=== PATIENT | female | born 1970 | race Caucasian/White ===

== ENCOUNTER 2017-06-04 11:07 | Emergency (ER) | payer OTHER ==
[~2017-06-04] VITALS: Ht 157.5 cm; Wt 63.5 kg
[~2017-06-04 11:07] MED LIST: Aspir 8181 MG PO; BCP PO; CEPH500 PO; ESTA1 PO; HYDROCODON-ACET15 ML; MULVITMIND PO; NAPR500 PO; OCUVITE EYE +1 EACH PO; OXYC1TAB11 PO; Omeprazole20 M1; TIZA4; VITAMIN D PO; Zofran Odt4 MG SL
[2017-06-04 11:55] LABS: BASOPHILS ABSOLUTE AUTO 0.05 K/mm3 (0.00-0.23); BASOPHILS PERCENT AUTO 1 % (0-2); EOSINOPHILS PERCENT AUTO 1 % (0-6); Hematocrit 40.4 % (33.0-51.0); Hemoglobin 13.8 g/dL (11.5-16.0); IMMATURE GRAN ABSOLUTE AUTO 0.02 K/mm3 (0.00-0.10); IMMATURE GRAN PERCENT AUTO 0 % (0-1); LYMPHOCYTES ABSOLUTE AUTO 2.12 K/mm3 (0.84-5.20); LYMPHOCYTES PERCENT AUTO 25 % (21-46); MONOCYTES ABSOLUTE AUTO 0.62 K/mm3 (0.16-1.47); MONOCYTES PERCENT AUTO 7 % (4-13); Mean Corpuscular HGB 35.7 pg (26.0-34.0); Mean Corpuscular HGB Conc 34.2 g/dL (31.5-36.5); Mean Corpuscular Volume 104 fL (80-100); Mean Platelet Volume 10.7 fL (9.1-12.4); NEUTROPHILS ABSOLUTE AUTO 5.73 K/mm3 (1.96-9.15); NEUTROPHILS PERCENT AUTO 66 % (41-73); Platelet Count 225 K/mm3 (150-400); RDW Coefficient Variation 13.9 % (11.7-14.2); RDW Standard Deviation 53.6 fL (35.1-46.3); Red Blood Cell Count 3.87 M/mm3 (3.80-5.20); White Blood Cell Count 8.64 K/mm3 (4.00-11.30)
[2017-06-04 12:11] LABS: Alanine Aminotransfer (ALT/SGP 48 U/L (12-78); Albumin, Blood 3.8 g/dL (3.4-5.0); Albumin/Globulin Ratio 1.2 (0.8-1.8); Alk Phos 92 U/L (50-136); Anion Gap 7 mmol/L (6-16); Aspartate Aminotrans (AST/SGOT 47 U/L (12-37); Bilirubin, Total 0.5 mg/dL (0.1-1.0); Blood Urea Nitrogen 16 mg/dL (8-24); Bun/Creatinine Ratio 22.8 (12.0-20.0); CO2, Blood 26 mmol/L (21-32); Calcium, Blood 8.9 mg/dL (8.5-10.1); Chloride, Blood 110 mmol/L (98-108); Globulin, Blood 3.2 g/dL (2.2-4.0); Glomerular Filtration Rate >60 (60-); Glucose, Blood 89 mg/dL (70-99); Potassium, Blood 3.6 mmol/L (3.5-5.5); Sodium, Blood 143 mmol/L (136-145); Troponin I <0.015 ng/mL (0.000-0.040)
== END 2017-06-04 13:33 | disposition home or self-care (01) ==
LOC: ER 11:07
PROVIDERS: Emergency Medicine
DX: I16.0 Hypertensive urgency (principal); Z88.8 Allergy status to other drugs, medicaments and biological substances; Z79.899 Other long term (current) drug therapy; Z79.82 Long term (current) use of aspirin; K21.9 Gastro-esophageal reflux disease without esophagitis; F17.210 Nicotine dependence, cigarettes, uncomplicated
CPT/HCPCS: 36415; 71045; 80053; 83880; 84484; 85025; 93005; 93010; 96374; 99283; J0360

== ENCOUNTER → 2017-07-07 | Outpatient (CLI) | payer OTHER ==
[2017-07-10 13:45] LABS: METANEPHRINE, UR 113 ug/L (Undefined); NORMETANEPHRINE, UR 376 ug/L (Undefined)
== END | disposition home or self-care (01) ==
LOC: LAB 09:45 → LAB FUT 07-01 12:10
PROVIDERS: Internal Medicine Cardiovascular Disease
DX: I10 Essential (primary) hypertension (principal)
CPT/HCPCS: 81050; 83835

== ENCOUNTER 2018-06-20 19:42 | Emergency (ER) | payer OTHER ==
[~2018-06-20] VITALS: Ht 157.5 cm; Wt 63.5 kg
[2018-06-20] MEDS ORDERED: LEVSOD25 PO (19:53)
[2018-06-20 20:08] LABS: BASOPHILS ABSOLUTE AUTO 0.02 K/mm3 (0.00-0.23); BASOPHILS PERCENT AUTO 0 % (0-2); EOSINOPHILS PERCENT AUTO 0 % (0-6); Hematocrit 45.7 % (33.0-51.0); Hemoglobin 14.6 g/dL (11.5-16.0); IMMATURE GRAN ABSOLUTE AUTO 0.08 K/mm3 (0.00-0.10); IMMATURE GRAN PERCENT AUTO 1 % (0-1); LYMPHOCYTES ABSOLUTE AUTO 0.72 K/mm3 (0.84-5.20); LYMPHOCYTES PERCENT AUTO 5 % (21-46); MONOCYTES ABSOLUTE AUTO 0.84 K/mm3 (0.16-1.47); MONOCYTES PERCENT AUTO 5 % (4-13); Mean Corpuscular HGB Conc 31.9 g/dL (31.5-36.5); Mean Corpuscular Volume 110 fL (80-100); Mean Platelet Volume 10.4 fL (9.1-12.4); NEUTROPHILS ABSOLUTE AUTO 14.47 K/mm3 (1.96-9.15); NEUTROPHILS PERCENT AUTO 90 % (41-73); Platelet Count 245 K/mm3 (150-400); RDW Standard Deviation 57.6 fL (35.1-46.3); Red Blood Cell Count 4.17 M/mm3 (3.80-5.20); White Blood Cell Count 16.13 K/mm3 (4.00-11.30)
[2018-06-20 20:19] LABS: Alanine Aminotransfer (ALT/SGP 163 U/L (12-78); Albumin, Blood 4.4 g/dL (3.4-5.0); Albumin/Globulin Ratio 1.1 (0.8-1.8); Alk Phos 93 U/L (50-136); Anion Gap 19 mmol/L (6-16); Aspartate Aminotrans (AST/SGOT 148 U/L (12-37); Bilirubin, Total 0.8 mg/dL (0.1-1.0); Blood Urea Nitrogen 19 mg/dL (8-24); Bun/Creatinine Ratio 20.3 (12.0-20.0); CO2, Blood 10 mmol/L (21-32); Calcium, Blood 8.3 mg/dL (8.5-10.1); Chloride, Blood 109 mmol/L (98-108); Creatinine, Blood 0.94 mg/dL (0.40-1.00); Glomerular Filtration Rate >60 (60-); Glucose, Blood 114 mg/dL (70-99); Potassium, Blood 4.8 mmol/L (3.5-5.5); Sodium, Blood 138 mmol/L (136-145); Total Protein, Blood 8.4 g/dL (6.4-8.2)
[2018-06-20 22:46] LABS: Source, Urine Clean Catch
[2018-06-20 22:48] LABS: Bilirubin, Urine Neg (Neg); Blood, Urine 2+ (Neg); Glucose Qualitative, Urine Neg (Neg); Ketones, Urine 4+ (Neg); Leukocyte Esterase, Urine Neg (Neg); Nitrite, Urine Neg (Neg); Protein, Urine 2+ (Neg); Specific Gravity, Urine 1.015 (1.003-1.022); Urobilinogen, Urine NORM (Normal)
[2018-06-20 22:51] LABS: Appearance, Urine Clear (Clear); Color, Urine Yellow (P-Yellow)
[2018-06-20 22:54] LABS: Bacteria Mod /hpf; Red Blood Cells, Urine 0-2 /hpf (0-2); Squamous Epithelial Cells Few /hpf (Few); White Blood Cells, Urine 0-2 /hpf (0-5)
[2018-06-21] MEDS ORDERED: METO10 PO (00:54)
== END 2018-06-21 01:05 | disposition home or self-care (01) ==
LOC: ER 19:42
PROVIDERS: Physician Assistant
DX: R11.2 Nausea with vomiting, unspecified (principal); R10.13 Epigastric pain; Z88.8 Allergy status to other drugs, medicaments and biological substances; Z79.899 Other long term (current) drug therapy; K21.9 Gastro-esophageal reflux disease without esophagitis; E03.9 Hypothyroidism, unspecified; Z87.891 Personal history of nicotine dependence
CPT/HCPCS: 74177; 76705; 80053; 81001; 83690; 85025; 87077; 87086; 87186; 93005; 93010; 96365-59; 96375; 96376; 99284-25; C9113; J0696; J1170; J1200; J1885; J2405; J2765; J7120; Q9967

== ENCOUNTER 2019-02-06 06:44 | Observation (INO) | payer OTHER ==
[~2019-02-06] VITALS: Ht 157.5 cm; Wt 58.6 kg
[~2019-02-06 06:44] MED LIST changes: +LEVSOD25 PO; +METO10 PO; +OMEP20ER PO; -Omeprazole20 M1
[2019-02-06 07:30] LABS: BASOPHILS ABSOLUTE AUTO 0.03 K/mm3 (0.00-0.23); BASOPHILS PERCENT AUTO 0 % (0-2); EOSINOPHILS ABSOLUTE AUTO 0.03 K/mm3 (0.00-0.68); EOSINOPHILS PERCENT AUTO 0 % (0-6); Hematocrit 45.5 % (33.0-51.0); Hemoglobin 14.6 g/dL (11.5-16.0); IMMATURE GRAN ABSOLUTE AUTO 0.08 K/mm3 (0.00-0.10); IMMATURE GRAN PERCENT AUTO 1 % (0-1); LYMPHOCYTES ABSOLUTE AUTO 0.54 K/mm3 (0.84-5.20); LYMPHOCYTES PERCENT AUTO 7 % (21-46); MONOCYTES ABSOLUTE AUTO 0.37 K/mm3 (0.16-1.47); MONOCYTES PERCENT AUTO 5 % (4-13); Mean Corpuscular HGB 35.4 pg (26.0-34.0); Mean Corpuscular HGB Conc 32.1 g/dL (31.5-36.5); Mean Corpuscular Volume 110 fL (80-100); Mean Platelet Volume 11.6 fL (9.1-12.4); NEUTROPHILS ABSOLUTE AUTO 6.72 K/mm3 (1.96-9.15); NEUTROPHILS PERCENT AUTO 87 % (41-73); Platelet Count 114 K/mm3 (150-400); RDW Coefficient Variation 13.6 % (11.7-14.2); RDW Standard Deviation 55.8 fL (35.1-46.3); Red Blood Cell Count 4.12 M/mm3 (3.80-5.20); White Blood Cell Count 7.77 K/mm3 (4.00-11.30)
[2019-02-06 07:33] LABS: Alanine Aminotransfer (ALT/SGP 284 U/L (12-78); Albumin/Globulin Ratio 1.2 (0.8-1.8); Alk Phos 85 U/L (50-136); Anion Gap 23 mmol/L (6-16); Aspartate Aminotrans (AST/SGOT 279 U/L (12-37); Bilirubin, Total 1.5 mg/dL (0.1-1.0); Blood Urea Nitrogen 9 mg/dL (8-24); Bun/Creatinine Ratio 13.1 (12.0-20.0); CO2, Blood 10 mmol/L (21-32); Calcium, Blood 8.4 mg/dL (8.5-10.1); Chloride, Blood 108 mmol/L (98-108); Creatinine, Blood 0.69 mg/dL (0.40-1.00); Globulin, Blood 3.3 g/dL (2.2-4.0); Glomerular Filtration Rate >60 (60-); Glucose, Blood 50 mg/dL (70-99); Sodium, Blood 141 mmol/L (136-145); Total Protein, Blood 7.3 g/dL (6.4-8.2)
[2019-02-06 07:38] LABS: Influenza A Negative (NEGATIVE); Influenza B Negative (NEGATIVE)
[2019-02-06 10:12] LABS: Source, Urine Voided
[2019-02-06 10:16] LABS: Bilirubin, Urine Neg (Neg); Blood, Urine 1+ (Neg); Glucose Qualitative, Urine Neg (Neg); Ketones, Urine 4+ (Neg); Leukocyte Esterase, Urine Neg (Neg); Nitrite, Urine Neg (Neg); Protein, Urine 2+ (Neg); Urobilinogen, Urine NORM (Normal)
[2019-02-06 10:20] LABS: pH Blood Venous 7.19 (7.34-7.37)
[2019-02-06 10:21] LABS: Appearance, Urine Clear (Clear); Color, Urine Yellow (P-Yellow)
[2019-02-06 10:21] LABS: Base Excess Venous -20.8 mmol/L; PCO2 Venous 19.5 mmHg (38-42)
[2019-02-06 10:23] LABS: Red Blood Cells, Urine 0-2 /hpf (0-2); White Blood Cells, Urine 0-2 /hpf (0-5)
[2019-02-06 10:24] LABS: Bacteria Mod /hpf; Squamous Epithelial Cells Few /hpf (Few)
[2019-02-06 10:28] LABS: U Amphetamine Screen Not Detected; U Barbituate Screen Not Detected; U Benzodiazapine Screen Not Detected; U Buprenorphine Screen Not Detected; U Cannabinoids Screen Not Detected; U Cocaine Screen Not Detected; U Methadone Screen Not Detected; U Methamphetamine Screen Not Detected; U Opiates Screen Not Detected; U Oxycodone Screen Not Detected; U Phencyclidine Screen Not Detected; U Propoxyphene Screen Not Detected
[2019-02-06 10:45] LABS: Chloride (POC) 111 mmol/L (98-108); Creatinine (POC) 0.6 mg/dL (0.6-1.0); Glucose (ISTAT POC) 65 mg/dL (70-99); Hemoglobin (POC) 14.3 g/dL (12.0-16.0); Potassium (POC) 4.5 mmol/L (3.5-5.5); Sodium (POC) 138 mmol/L (135-148); Total CO2 (POC) 11 mmol/L (21-32)
[2019-02-06 11:09] LABS: Bicarbonate Venous 12.1 mmol/L (24.0-30.0); PCO2 Venous 20.5 mmHg (38-42); PO2 Venous 196 mmHg (38-42); pH Blood Venous 7.23 (7.34-7.37)
[2019-02-06 13:08] LABS: Base Excess Venous -17.3 mmol/L; Bicarbonate Venous 12.8 mmol/L (24.0-30.0); PCO2 Venous 25.6 mmHg (38-42); PO2 Venous 74.9 mmHg (38-42); pH Blood Venous 7.22 (7.34-7.37)
[2019-02-06 16:14] LABS: Anion Gap 15 mmol/L (6-16); Blood Urea Nitrogen 9 mg/dL (8-24); Bun/Creatinine Ratio 13.4 (12.0-20.0); CO2, Blood 14 mmol/L (21-32); Calcium, Blood 7.9 mg/dL (8.5-10.1); Chloride, Blood 109 mmol/L (98-108); Creatinine, Blood 0.67 mg/dL (0.40-1.00); Glomerular Filtration Rate >60 (60-); Glucose, Blood 93 mg/dL (70-99); Potassium, Blood 4.5 mmol/L (3.5-5.5); Sodium, Blood 138 mmol/L (136-145)
[2019-02-06] MEDS ORDERED: LOSA50 PO (16:26)
[2019-02-06] MEDS ORDERED: BUPR150ER PO (16:26)
[2019-02-06 16:29] LABS: Percent Saturation 94.6 % (15.0-50.0)
--- NOTE | 2019-02-06 17:35 | NUR ---
SHIFT SUMMARY 1620 RECEIVED PT TO RM 364 VIA W/C FROM ER. PT ADMITTED FOR N/V, BROUGHT TO ER VIA EMS FOR C/O SEBASTIAN, CHILLS, AND CP SINCE YESTERDAY. LABS SHOWING ELEVATED LIVER ENZYMES, PER ER REPORT, LIVER FAILURE. RECEIVED REPORT FROM HANNA GANNON, PER , PT QUIT DRINKING 2 MONTHS AGO. PT POSSIBLY CLOSET DRINKER, IN DENIAL. TREMORS TO BUE'S. PT VERY UNSTEADY AND SHAKEY TRYING TO AMBULATE FROM W/C TO BED. PT ALSO TAKES A LONG TIME TO ANS QUESTIONS, HAVING DIFFICULTY REMEMBERING AND UNSURE HOW TO ANS OR WHAT TO SAY. LAC FS IV, INFUSING INF'S PER EMAR. NORMALLY INDEPENDENT AT HOME. MEDS GIVEN PER EMAR. PT REQUESTED JELLO AND BROTH; GIVEN. DENIED FURHTER NEEDS. CALL LT IN REACH.
[2019-02-06 17:36] LABS: Thyroid Stimulating Hormone 3.66 uIU/mL (0.360-4.800)
[2019-02-07 05:43] LABS: Alanine Aminotransfer (ALT/SGP 167 U/L (12-78); Albumin, Blood 3.1 g/dL (3.4-5.0); Albumin/Globulin Ratio 1.3 (0.8-1.8); Alk Phos 60 U/L (50-136); Anion Gap 15 mmol/L (6-16); Aspartate Aminotrans (AST/SGOT 117 U/L (12-37); Bilirubin, Total 1.3 mg/dL (0.1-1.0); Blood Urea Nitrogen 10 mg/dL (8-24); Bun/Creatinine Ratio 18.5 (12.0-20.0); CO2, Blood 15 mmol/L (21-32); Chloride, Blood 108 mmol/L (98-108); Creatinine, Blood 0.54 mg/dL (0.40-1.00); Globulin, Blood 2.3 g/dL (2.2-4.0); Glomerular Filtration Rate >60 (60-); Glucose, Blood 60 mg/dL (70-99); Potassium, Blood 3.7 mmol/L (3.5-5.5); Sodium, Blood 138 mmol/L (136-145); Total Protein, Blood 5.4 g/dL (6.4-8.2)
--- NOTE | 2019-02-07 07:49 | NUR ---
02/07/19 0600 CIWA DOWN THESE PAST TWO EVALS. PT TAKING ORAL FLUIDS THIS AM. NO C/O S/S OR PAIN. STAYED WITH HER ALL NIGHT. VITALS STABLE. DOING BETTER THIS AM.
[2019-02-07 09:06] LABS: HBSAG SCREEN Negative (Negative); HEP A AB, IGM Negative (Negative); HEP B CORE AB, IGM Negative (Negative); HEP C VIRUS AB <0.1 (0.0-0.9)
[2019-02-07] MEDS ORDERED: FOLI1 PO (10:28)
[2019-02-07] MEDS ORDERED: LORA.5 PO (10:28)
--- NOTE | 2019-02-07 13:48 | NUR ---
PT AWAKE DURING SHIFT REPORT, DENIED NEEDS. PT'S IN RM ASSISTING PT. PT VERY ANXIOUS AND RESTLESS, OUT OF BED FREQUENTLY. PT UNSTEADY AND SHAKEY WITH TREMORS TO UPPER EXTREMITIES. PT'S IN RM TRYING TO KEEP PT SAFE. PT SETTING BED ALARM OFF WANTING TO GO SMOKE AND BECOMING FRUSTRATED AT TRYING TO STOP HER. PT REMOVED TELE AND CONTINOUS BIOX. PT ASSISTED TO SHOWER, PER REQUEST. DR KERN IN TO SEE PT; D/C ORDERS PLACED. PT REMAINED VERY RESTLESS, EVEN UNTIL D/C. SOMEWHAT UNSTEADY ALL THE TIME. DISCUSSED D/C ORDERS WITH PT; VERBALIZED UNDERSTANDING. ASSISTED OUT TO CAR VIA W/C.
[2019-02-08 11:09] LABS: Antinuclear Antibody Screen Negative (Negative)
== END 2019-02-07 11:15 | disposition home or self-care (01) ==
LOC: ER 06:44 → MEDS 15:00
PROVIDERS: Emergency Medicine; ADMIT Internal Medicine
DX: E87.4 Mixed disorder of acid-base balance (principal); A08.4 Viral intestinal infection, unspecified; R74.8 Abnormal levels of other serum enzymes; F41.9 Anxiety disorder, unspecified; F32.9 Major depressive disorder, single episode, unspecified; R06.4 Hyperventilation; I10 Essential (primary) hypertension; E03.9 Hypothyroidism, unspecified; F17.210 Nicotine dependence, cigarettes, uncomplicated; K76.0 Fatty (change of) liver, not elsewhere classified; K21.9 Gastro-esophageal reflux disease without esophagitis; Z72.89 Other problems related to lifestyle; Z79.899 Other long term (current) drug therapy
CPT/HCPCS: 36415; 76705; 80047; 80048; 80053; 80074; 81001; 82607; 82728; 82746; 82803; 83540; 83550; 83690; 84443; 85014; 85025; 86038; 87077; 87086; 87186; 87804; 93005; 93010; 94762; 96361; 96374; 96375; 99285-25; G0378; G0480; J0780; J2060; J2405; J7030; J7120

== ENCOUNTER 2019-03-24 07:47 | Day surgery (SDC) | payer OTHER ==
[~2019-03-24] VITALS: Ht 157.5 cm; Wt 58.7 kg
[~2019-03-24 07:47] MED LIST changes: +BUPR150ER PO; +FOLI1 PO; +LORA.5 PO; +LOSA50 PO
== END 2019-03-24 09:41 | disposition home or self-care (01) ==
LOC: ORSCSDS 07:47
PROVIDERS: Internal Medicine Gastroenterology
PROC: 0DB68ZX Excision of Stomach, Via Natural or Artificial Opening Endoscopic, Diagnostic (ICD-10-PCS; principal; 2019-03-24 09:00)
PROC: 0DB98ZX Excision of Duodenum, Via Natural or Artificial Opening Endoscopic, Diagnostic (ICD-10-PCS; principal; 2019-03-24 09:00)
PROC: 0D757ZZ Dilation of Esophagus, Via Natural or Artificial Opening (ICD-10-PCS; principal; 2019-03-24 09:00)
PROC: 0DB58ZX Excision of Esophagus, Via Natural or Artificial Opening Endoscopic, Diagnostic (ICD-10-PCS; principal; 2019-03-24 09:00)
DX: R11.2 Nausea with vomiting, unspecified (principal); R13.14 Dysphagia, pharyngoesophageal phase; R63.4 Abnormal weight loss; K31.89 Other diseases of stomach and duodenum; R79.89 Other specified abnormal findings of blood chemistry; K29.70 Gastritis, unspecified, without bleeding; K76.6 Portal hypertension; F17.210 Nicotine dependence, cigarettes, uncomplicated; Z79.899 Other long term (current) drug therapy
CPT/HCPCS: 87081; 88305; 88342; J2405; J2704; J7120

== ENCOUNTER → 2019-05-02 | Outpatient (CLI) | payer OTHER | END | disposition home or self-care (01) | LOC: OLS 16:10 → LAB SHORT 16:10 → LAB FUT 04-21 14:00 | DX: R79.89 Other specified abnormal findings of blood chemistry (principal) | CPT/HCPCS: 81050 ==

== ENCOUNTER 2019-09-05 16:58 | Emergency (ER) | payer SELFPAY ==
[~2019-09-05] VITALS: Ht 157.5 cm; Wt 49.4 kg
[~2019-09-05 16:58] MED LIST changes: +ACET325 PO; +ALPR.25 PO; +CULTURELLE HEA1 EACH PO; +LOPE2C PO; +LOSARTAN POTASS25 M2 PO; +Nicoderm Cq1 EACH TOP; +Ondansetron Odt8 MG SL; +POTCHL20ER PO; +Prochlorperazin10 MG PO; +XANAX0.25 MG PO
[2019-09-05] MEDS ORDERED: OMEPRAZOLE MAGN20 MG PO (20:21)
[2019-09-05] MEDS ORDERED: LOSA25 PO (20:22)
[2019-09-05] MEDS ORDERED: K-Dur 20 meq T20 MEQ PO (20:23)
[2019-09-05] MEDS ORDERED: SERT50 PO (20:23)
[2019-09-07] MEDS ORDERED: METO25ER PO (12:08)
[2019-09-07] MEDS ORDERED: METO10 PO (12:09)
== END 2019-09-05 17:14 | disposition left against medical advice (07) ==
LOC: ER 16:58
DX: Z53.21 Procedure and treatment not carried out due to patient leaving prior to being seen by health care provider (principal)

== ENCOUNTER 2020-11-05 15:32 | Inpatient (IN) | payer BC ==
[~2020-11-05] VITALS: Ht 157.5 cm; Wt 73.0 kg
[~2020-11-05 15:32] MED LIST changes: +K-Dur 20 meq T20 MEQ PO; +LOSA25 PO; +METO25ER PO; +OMEPRAZOLE MAGN20 MG PO; +SERT50 PO
[2020-11-05] MEDS ORDERED: IBUP600 PO (15:52)
[2020-11-05] MEDS ORDERED: HYDHCL25 PO (15:53)
[2020-11-05] MEDS ORDERED: LEVSOD75 PO (15:53)
[2020-11-05 16:30] LABS: BASOPHILS ABSOLUTE AUTO 0.06 K/mm3 (0.00-0.23); BASOPHILS PERCENT AUTO 1 % (0-2); EOSINOPHILS ABSOLUTE AUTO 0.03 K/mm3 (0.00-0.68); EOSINOPHILS PERCENT AUTO 0 % (0-6); Hematocrit 42.4 % (33.0-51.0); Hemoglobin 14.6 g/dL (11.5-16.0); IMMATURE GRAN ABSOLUTE AUTO 0.06 K/mm3 (0.00-0.10); IMMATURE GRAN PERCENT AUTO 1 % (0-1); LYMPHOCYTES ABSOLUTE AUTO 2.18 K/mm3 (0.84-5.20); LYMPHOCYTES PERCENT AUTO 17 % (21-46); MONOCYTES ABSOLUTE AUTO 0.62 K/mm3 (0.16-1.47); MONOCYTES PERCENT AUTO 5 % (4-13); Mean Corpuscular HGB 30.9 pg (26.0-34.0); Mean Corpuscular HGB Conc 34.4 g/dL (31.5-36.5); Mean Corpuscular Volume 90 fL (80-100); Mean Platelet Volume 10.5 fL (9.1-12.4); NEUTROPHILS ABSOLUTE AUTO 10.19 K/mm3 (1.96-9.15); NEUTROPHILS PERCENT AUTO 78 % (41-73); Platelet Count 296 K/mm3 (150-400); RDW Coefficient Variation 14.8 % (11.7-14.2); Red Blood Cell Count 4.72 M/mm3 (3.80-5.20); White Blood Cell Count 13.14 K/mm3 (4.00-11.30)
[2020-11-05 16:49] LABS: Alanine Aminotransfer (ALT/SGP 23 U/L (12-78); Albumin, Blood 3.5 g/dL (3.4-5.0); Albumin/Globulin Ratio 0.9 (0.8-1.8); Alk Phos 93 U/L (50-136); Anion Gap 7 mmol/L (6-16); Aspartate Aminotrans (AST/SGOT 24 U/L (12-37); Bilirubin, Total 0.3 mg/dL (0.1-1.0); Blood Urea Nitrogen 15 mg/dL (8-24); Bun/Creatinine Ratio 20.3 (12.0-20.0); CO2, Blood 22 mmol/L (21-32); Calcium, Blood 8.9 mg/dL (8.5-10.1); Chloride, Blood 109 mmol/L (98-108); Creatinine, Blood 0.74 mg/dL (0.40-1.00); Globulin, Blood 3.7 g/dL (2.2-4.0); Glomerular Filtration Rate >60 (60-); Glucose, Blood 97 mg/dL (70-99); Potassium, Blood 3.9 mmol/L (3.5-5.5); Sodium, Blood 138 mmol/L (136-145); Total Protein, Blood 7.2 g/dL (6.4-8.2)
[2020-11-05] MEDS ORDERED: SYNTHROID50 MC1 PO (20:57)
[2020-11-05] MEDS ORDERED: FLUOXETINE HCL20 M2 PO (20:57)
[2020-11-05 21:53] LABS: Anti-Xa UFH, PHA Monitoring <0.10 IU/mL; International Normalized Ratio 1.04; Prothrombin Time Results 10.9 Sec (9.7-11.5)
[2020-11-05 22:05] LABS: Thyroid Stimulating Hormone 0.701 uIU/mL (0.360-4.800)
[2020-11-05 22:51] LABS: SARS-Cov-2 (COVID-19) PCR, MMC NEGATIVE (NEGATIVE)
[2020-11-06] MEDS ORDERED: SERT100 PO (00:24)
[2020-11-06 05:25] LABS: CHOL/HDL RATIO 8.9; Cholesterol 363 mg/dL (50-200); HDL Cholesterol 41 mg/dL (>39); LDL/HDL RATIO 6.4; Low Density Lipoprotein Chol 262 mg/dL (0-110); Triglycerides 302 mg/dL (30-160); Very Low Density Lipoprot Chol 60 mg/dL (6-32)
--- NOTE | 2020-11-06 06:40 | NUR ---
SHIFT SUMMARY PT WAS A NEW ADMIT DURING THE NIGHT, ARRIVING ON THE FLOOR AT 2358. SHE WAS ADMITTED FOR CVA WITH L-SIDE DEFICITS. ON ADMIT, PT L-SIDE WEAK, WITH L FACIAL DROOP. SPEECH CLEAR THOUGH PT HAD TROUBLE FINDING WORDS. VITAL SIGNS STABLE. PT REPORTED A SEBASTIAN, AND WAS MEDICATED WITH PRN TYLENOL. PT ON CONTINOUS HEPARIN DRIP, CURRENTLY AT 12 U/KG/HR. PT IS STRONGER ON L SIDE THIS AM, THOUGH STILL MILDLY WEAKER THAN R SIDE. NO OTHER ACUTE CHANGES NOTED SINCE ADMIT. WILL CONTINUE TO MONITOR AND TREAT PER EMAR UNTIL HAND OFF TO DAY SHIFT RN.
--- NOTE | 2020-11-06 11:01 | NUR ---
PATIENT AMBULATES TO THE BATHROOM, ONE PERSON STAND BY ASSIST, LEFT SIDE DEFICIT PRESENT, LEFT HAND WEAKER THAN THE RIGHT, FOLLOWS SWALLOWING QUIES, LEFT SIDE FACIAL DROP, PLEASANT TO CARE, PATIENT DOES WANT TO GO HOME TODAY, PT HAS WORKED WITH PATIENT THIS AM
--- NOTE | 2020-11-06 18:16 | NUR ---
MAKES NEEDS KNOWN, CALL LIGHT WITH IN REACH, PLEASANT TO CARE, ALERT AND ORIENTED X4, LEFT MCKENNA DEFICIT WITH LEFT FACILA DROOP, PT/OT/ST WORKED WITH PATIENT TODAY, VS REVEIWED, LS CLEAR, CLEARS CONGESTION WITH A COUGH, WCTM
[2020-11-07 05:53] LABS: BASOPHILS ABSOLUTE AUTO 0.05 K/mm3 (0.00-0.23); BASOPHILS PERCENT AUTO 1 % (0-2); EOSINOPHILS ABSOLUTE AUTO 0.18 K/mm3 (0.00-0.68); EOSINOPHILS PERCENT AUTO 3 % (0-6); Hematocrit 41.7 % (33.0-51.0); Hemoglobin 13.9 g/dL (11.5-16.0); Mean Corpuscular HGB 30.7 pg (26.0-34.0); Mean Corpuscular HGB Conc 33.3 g/dL (31.5-36.5); Mean Corpuscular Volume 92 fL (80-100); Mean Platelet Volume 10.4 fL (9.1-12.4); Platelet Count 240 K/mm3 (150-400); RDW Standard Deviation 50.2 fL (35.1-46.3); Red Blood Cell Count 4.53 M/mm3 (3.80-5.20); White Blood Cell Count 6.54 K/mm3 (4.00-11.30)
--- NOTE | 2020-11-07 06:03 | NUR ---
50 YEAR OLD fEMALE WITH RT SIDED cva WITH SLIGHT LT FACIAL DROOP CONTUES SLIGHTLY TREMOULOUS THIS am. DECLINES ATARAX TO TX. DUREED DIET NECTAR THICK LIQ. ON PLAVIX & HEPARIN GTT TO TX cva.
[2020-11-07 06:05] LABS: IMMATURE GRAN ABSOLUTE AUTO 0.02 K/mm3 (0.00-0.10); IMMATURE GRAN PERCENT AUTO 0 % (0-1); LYMPHOCYTES ABSOLUTE AUTO 2.91 K/mm3 (0.84-5.20); LYMPHOCYTES PERCENT AUTO 45 % (21-46); MONOCYTES ABSOLUTE AUTO 0.48 K/mm3 (0.16-1.47); MONOCYTES PERCENT AUTO 7 % (4-13); NEUTROPHILS PERCENT AUTO 44 % (41-73)
[2020-11-07 06:29] LABS: Alanine Aminotransfer (ALT/SGP 18 U/L (12-78); Albumin, Blood 2.9 g/dL (3.4-5.0); Albumin/Globulin Ratio 0.8 (0.8-1.8); Alk Phos 84 U/L (50-136); Anion Gap 6 mmol/L (6-16); Aspartate Aminotrans (AST/SGOT 20 U/L (12-37); Bilirubin, Total 0.6 mg/dL (0.1-1.0); Blood Urea Nitrogen 17 mg/dL (8-24); Bun/Creatinine Ratio 20.4 (12.0-20.0); CO2, Blood 22 mmol/L (21-32); Calcium, Blood 8.7 mg/dL (8.5-10.1); Chloride, Blood 110 mmol/L (98-108); Creatinine, Blood 0.83 mg/dL (0.40-1.00); Globulin, Blood 3.6 g/dL (2.2-4.0); Glomerular Filtration Rate >60 (60-); Glucose, Blood 85 mg/dL (70-99); Magnesium, Blood 2.3 mg/dL (1.6-2.4); Phosphorus, Blood 2.6 mg/dL (2.5-4.9); Potassium, Blood 3.6 mmol/L (3.5-5.5); Sodium, Blood 138 mmol/L (136-145); Total Protein, Blood 6.5 g/dL (6.4-8.2)
--- NOTE | 2020-11-07 08:31 | NUR ---
ST IN ROOM WITH PATIENT, NO COUGH WITH THIN LIQUIDS, MAKES NEEDS KNOWN, CALL LIGHT WITH IN REACH
[2020-11-07] MEDS ORDERED: ACET325 PO (09:10)
[2020-11-07] MEDS ORDERED: ASPIR 8181 M1 PO (09:15)
[2020-11-07] MEDS ORDERED: ATOR80 PO (09:16)
[2020-11-07] MEDS ORDERED: CLOP75 PO (09:17)
[2020-11-07] MEDS ORDERED: FAMO20 PO (09:18)
[2020-11-07] MEDS ORDERED: NICOTINE1 EAC1 TOP (09:20)
[2020-11-07] MEDS ORDERED: XARELTO20 MG PO (09:27)
--- NOTE | 2020-11-07 11:15 | NUR ---
1100 DISCHARGED HOME VIA WC, PICKED UP
== END 2020-11-07 10:48 | disposition home or self-care (01) | DRG 65 ==
LOC: ER 15:32 → MEDS 23:43
PROVIDERS: Emergency Medicine; Family Medicine; ADMIT Internal Medicine
DX: I63.89 Other cerebral infarction (principal); G81.94 Hemiplegia, unspecified affecting left nondominant side; Z20.822 Contact with and (suspected) exposure to COVID-19; R29.810 Facial weakness; R47.1 Dysarthria and anarthria; R47.81 Slurred speech; K21.9 Gastro-esophageal reflux disease without esophagitis; E03.9 Hypothyroidism, unspecified; F41.9 Anxiety disorder, unspecified; F10.10 Alcohol abuse, uncomplicated; F32.9 Major depressive disorder, single episode, unspecified; K74.60 Unspecified cirrhosis of liver; Z71.6 Tobacco abuse counseling; E78.5 Hyperlipidemia, unspecified; I10 Essential (primary) hypertension; F17.210 Nicotine dependence, cigarettes, uncomplicated; Z79.899 Other long term (current) drug therapy; Z98.51 Tubal ligation status; Z90.710 Acquired absence of both cervix and uterus
CPT/HCPCS: 36415; 70450; 70496; 70498; 80053; 80061; 83735; 84100; 84443; 85025; 85520; 85610; 85730; 86141; 92526; 92610; 93005; 93010; 93306; 96365; 96366; 97110; 97112; 97161; 97167; 97530; 99285-25; A9270; J1644; Q9967; U0004